=== PATIENT | female | born 1960 | race Caucasian/White ===

== ENCOUNTER 2016-08-05 17:05 | Emergency (ER) | payer BC ==
[2016-08-05] MEDS ORDERED: HYDROmorphone 0.5 MG/0.5 ML Syringe IVPUSH ONE ×2 (17:20→18:48)
[2016-08-05] MEDS ORDERED: Sodium Chloride 0.9% 500 ML IV ONE (17:20)
[2016-08-05] MEDS ORDERED: Ondansetron 4 MG/2 ML SDV IVPUSH ONE (17:20)
[2016-08-05] MEDS ORDERED: Sodium Chloride 0.9% 10 ML Syringe FLUSH PRN (17:20)
--- NOTE | 2016-08-05 17:49 | EDM.PDOC ---
ED HPI GENERAL MEDICAL PROBLEM - General Chief Complaint: Flank Pain Stated Complaint: POSS KIDNEY STONE Time Seen by Provider: 08/05/16 17:13 Source of Information: Reports: Patient, RN Notes Reviewed - History of Present Illness INITIAL COMMENTS - FREE TEXT/NARRATIVE: 55-year-old lady with onset of right back and flank discomfort about 45 minutes ago. She was out "fixing fence". No fall or injury. The pain started in the right back and then has been radiating to the right flank and even to the right groin. His been sharp and shooting with nausea and vomiting. She did have a fairly brief episode of discomfort right back yesterday which was relieved by pain Advil or ibuprofen. No voiding dysuria or frequency. No fever or chills. Right Flank Pain Score (Numeric/FACES): 8 - Related Data Allergies Allergy/AdvReac Type Severity Reaction Status Date / Time No Known Allergies Allergy Verified 08/15/14 06:59 Home Meds: Home Meds Travoprost [Travatan Z 0.004% Ophth Soln] 1 drop EYEBOTH DAILY 08/15/14 [History ] Past Medical History HEENT History: Reports: Glaucoma Gastrointestinal History: Reports: Other (See Below) Other Gastrointestinal History: stretched esphagus due to choking Genitourinary History: Reports: Renal Calculus, Other (See Below) Other Genitourinary History: mass to one of the kidneys Endocrine/Metabolic History: Reports: Other (See Below) Other Endocrine/Metabolic History: nodules on thyroid Social & Family History - Tobacco Use Smoking Status *Q: Never Smoker Second Hand Smoke Exposure: No - Caffeine Use Caffeine Use: Reports: Coffee - Alcohol Use Days Per Week of Alcohol Use: 1 Number of Drinks Per Day: 1 Total Drinks Per Week: 1 - Recreational Drug Use Recreational Drug Use: No Drug Use in Last 12 Months: No ED ROS GENERAL - Review of Systems Review Of Systems: See Below Constitutional: Denies: Fever, Chills HEENT: Reports: No Symptoms Respiratory: Reports: No Symptoms Cardiovascular: Denies: Chest Pain GI/Abdominal: Reports: Abdominal Pain, Nausea (Right flank pain), Vomiting. Denies: Diarrhea : Denies: Dysuria, Frequency Musculoskeletal: Reports: Back Pain Skin: Reports: No Symptoms (Right-sided) ED EXAM, RENAL/ - Physical Exam Exam: See Below General Appearance: Alert, Moderate Distress Eye Exam: Bilateral Eye: PERRL Throat/Mouth: Normal Inspection Head: Atraumatic. No: Facial Swelling Neck: Supple, Full Range of Motion Respiratory/Chest: No Respiratory Distress, Lungs Clear Cardiovascular: Regular Rate, Rhythm GI/Abdominal: Non-Tender. No: Guarding Back Exam: CVA Tenderness (R) (Mild). No: CVA Tenderness (L) Neurological: Alert, Oriented, No Motor/Sensory Deficits Skin Exam: Warm, Dry, Normal Color Course - Vital Signs Last Recorded V/S: Last Vital Signs Temp 96.7 F 08/05/16 17:11 Pulse 59 L 08/05/16 17:11 Resp 20 08/05/16 17:11 BP 138/83 08/05/16 17:11 Pulse Ox 98 08/05/16 17:11 - Orders/Labs/Meds Orders: Active Orders 24 hr Category Date Time Status Peripheral IV Care [RC] . DIRECTED Care 08/05/16 17:20 Active UA W/MICROSCOPIC [URIN] Stat Lab 08/05/16 17:19 Uncollected Sodium Chloride 0.9% [Saline Flush] Med 08/05/16 17:20 Active 10 ml FLUSH ASDIRECTED PRN Peripheral IV Insertion Adult [OM.PC] Stat Oth 08/05/16 17:20 Ordered Medication Orders Sodium Chloride (Saline Flush) 10 ml FLUSH ASDIRECTED PRN PRN Reason: Keep Vein Open Last Admin: 08/05/16 17:37 Dose: 10 ml Meds: Medications Generic Name Dose Route Start Last Admin Trade Name Freq PRN Reason Stop Dose Admin Sodium Chloride 10 ml 08/05/16 17:20 08/05/16 17:37 Saline Flush FLUSH 10 ml ASDIRECTED PRN Administration Keep Vein Open Discontinued Medications Generic Name Dose Route Start Last Admin Trade Name Freq PRN Reason Stop Dose Admin Hydromorphone HCl 0.5 mg 08/05/16 17:20 08/05/16 17:35 Dilaudid IVPUSH 08/05/16 17:21 0.5 mg ONETIME ONE Administration Hydromorphone HCl 0.5 mg 08/05/16 18:05 08/05/16 18:08 Dilaudid IVPUSH 08/05/16 18:06 0.5 mg ONETIME STA Administration Hydromorphone HCl Confirm 08/05/16 18:06 08/05/16 18:10 Dilaudid Administered 08/05/16 18:07 Not Given Dose 0.5 mg .ROUTE .STK-MED ONE Hydromorphone HCl 0.5 mg 08/05/16 18:48 Dilaudid IVPUSH 08/05/16 18:49 ONETIME ONE Sodium Chloride 500 mls @ 999 mls/hr 08/05/16 17:20 08/05/16 17:33 Normal Saline IV 08/05/16 17:50 999 mls/hr .BOLUS ONE Administration Ondansetron HCl 4 mg 08/05/16 17:20 08/05/16 17:34 Zofran IVPUSH 08/05/16 17:21 4 mg ONETIME ONE Administration - Re-Assessments/Exams Free Text/Narrative Re-Assessment/Exam: 08/05/16 18:57 Patient has a 6.6 mm stone right ureter with hydronephrosis, see Radiology report for details. Departure - Departure Time of Disposition: 18:58 Disposition: Home, Self-Care 01 Condition: Fair Clinical Impression: Kidney stone on right side - Discharge Information Forms: ED Department Discharge Additional Instructions: Strain urine to watch for stone, Tylenol for mild to moderate discomfort or Percocet as needed for severe pain, did not take Tylenol and Percocet at the same time, do not drive when taking Percocet, Zofran if needed for further nausea or vomiting. Call Dr. Molina's office Sunday morning, asked for help to get a urology referral for 6.6 mm stone ureter. - My Orders Last 24 Hours: My Active Orders 08/05/16 17:19 UA W/MICROSCOPIC [URIN] Stat 08/05/16 17:20 Peripheral IV Care [RC] . DIRECTED Sodium Chloride 0.9% [Saline Flush] 10 ml FLUSH ASDIRECTED PRN Peripheral IV Insertion Adult [OM.PC] Stat - Assessment/Plan Last 24 Hours: My Active Orders 08/05/16 17:19 UA W/MICROSCOPIC [URIN] Stat 08/05/16 17:20 Peripheral IV Care [RC] . DIRECTED Sodium Chloride 0.9% [Saline Flush] 10 ml FLUSH ASDIRECTED PRN Peripheral IV Insertion Adult [OM.PC] Stat
[2016-08-05] MEDS ORDERED: HYDROmorphone 0.5 MG/0.5 ML Syringe IVPUSH STA (18:05)
[2016-08-05] MEDS ORDERED: HYDROmorphone 0.5 MG/0.5 ML Syringe ONE (18:06)
--- NOTE | 2016-08-05 18:14 | CT ---
CT abdomen and pelvis Technique: Multiple axial sections were obtained from above the dome of the diaphragm inferiorly through the pubic symphysis. Intravenous and oral contrast was not utilized. Study has been performed as a ureteral stone protocol. Findings: Proximal ureter is mildly dilated. This is due to an obstructing stone within the right ureter measuring approximately 6.6 mm. Stone is located at the L4-L5 level. No other abnormal calcifications are seen along the course of the ureters. No abnormal calcifications are seen within the kidneys. Fatty containing lesion is identified within the left kidney. This lesion measures about 2.7 cm and is most likely due to angiomyolipoma. Visualized lung bases shows a small subpleural calcification on the right side believed to represent minimal granuloma. Moderately large hiatal hernia is seen. Noncontrast appearance of the liver and spleen appears within normal limits. Adrenal glands show no nodule. Several large calcified gallstones seen within the gallbladder. Pancreas appears within normal limits. Aorta shows no aneurysmal dilatation. No retroperitoneal adenopathy or mesenteric abnormalities are seen. No pelvic mass or adenopathy is seen. No free fluid is seen. No bowel dilatation is identified. Bone window settings were reviewed which shows mild scoliosis within the spine. Very mild degenerative change is scattered within the spine. Impression: 1. Mild proximal hydronephrosis due to an obstructing stone within the proximal to mid right ureter. Stone measures approximately 6.6 mm in size and located at the L4-L5 level. 2. 2.2 cm fatty lesion within the left kidney felt compatible with angiomyolipoma. 3. Other incidental findings as described above. Diagnostic code #3
[2016-08-05 19:28] VITALS: BP 134/84
== END 2016-08-05 19:30 | disposition home or self-care (01) ==
LOC: JD.ED 17:05
DX: N13.2 Hydronephrosis with renal and ureteral calculous obstruction (principal); Z79.899 Other long term (current) drug therapy
CPT/HCPCS: 74176; 96361; 96374; 96375; 96376; 99284; J1170; J2405; J7040; J7050; 99283

== ENCOUNTER 2016-08-06 00:44 | Emergency (ER) | payer BC ==
[2016-08-06 00:54] VITALS: BP 130/84
[2016-08-06] MEDS ORDERED: Metoclopramide 10 MG/2 ML SDV IVPUSH ONE (01:07)
[2016-08-06] MEDS ORDERED: HYDROmorphone 0.5 MG/0.5 ML Syringe IVPUSH ONE (01:07)
--- NOTE | 2016-08-06 01:11 | EDM.PDOC ---
ED HPI GENERAL MEDICAL PROBLEM - General Chief Complaint: Flank Pain Stated Complaint: KIDNEY STONE/VOMITING Time Seen by Provider: 08/06/16 01:06 Source of Information: Reports: Patient History Limitations: Reports: No Limitations - History of Present Illness INITIAL COMMENTS - FREE TEXT/NARRATIVE: 55-year-old female presents to the ED due to intractable nausea and vomiting secondary to severe pain. Pain started in her right flank last evening. She was seen through the ED and identified to have a 6.6-7 mm stone in the proximal right ureter. She was discharged on Zofran which she has not taken. She states the pain has not really moved much still mostly in her right flank rates the pain as 10 out of 10 and is causing her to be nausea and vomiting on multiple occasions. No position is comfortable. She reports one previous bout of kidney stones years ago. Onset: Sudden Onset Date: 08/05/16 Duration: Hour(s):, Getting Worse, Waxing/Waning Location: Reports: Back (Right flank is okay so radiating pain down towards the right groin.) Quality: Reports: Ache, Pressure, Stabbing Severity: Severe Improves with: Reports: None (10 out of 10 pain at times.) Worsens with: Reports: None Context: Denies: Activity, Exercise, Lifting, Sick Contact, Trauma, Other Associated Symptoms: Reports: Loss of Appetite, Nausea/Vomiting. Denies: Malaise, Seizure, Shortness of Breath (Intractable nausea and vomiting), Syncope Treatments HR SPECIALIST: Reports: Other (see below) Right Flank Pain Score (Numeric/FACES): 9 - Related Data Allergies Allergy/AdvReac Type Severity Reaction Status Date / Time No Known Allergies Allergy Verified 08/06/16 00:54 Home Meds: Home Meds Travoprost [Travatan Z 0.004% Ophth Soln] 1 drop EYEBOTH DAILY 08/15/14 [History ] Past Medical History HEENT History: Reports: Glaucoma Gastrointestinal History: Reports: Other (See Below) Other Gastrointestinal History: stretched esphagus due to choking Genitourinary History: Reports: Renal Calculus, Other (See Below) Other Genitourinary History: mass to one of the kidneys Endocrine/Metabolic History: Reports: Multinodular Thyroid Other Endocrine/Metabolic History: nodules on thyroid Social & Family History - Tobacco Use Smoking Status *Q: Never Smoker Second Hand Smoke Exposure: No - Caffeine Use Caffeine Use: Reports: None - Alcohol Use Days Per Week of Alcohol Use: 1 Number of Drinks Per Day: 1 Total Drinks Per Week: 1 - Recreational Drug Use Recreational Drug Use: No Drug Use in Last 12 Months: No - Living Situation & Occupation Living situation: Reports: Occupation: Employed ED ROS GENERAL - Review of Systems Review Of Systems: See Below Constitutional: Reports: Chills, Malaise, Weakness, Fatigue, Decreased Appetite. Denies: Fever HEENT: Reports: No Symptoms Respiratory: Reports: No Symptoms Cardiovascular: Reports: No Symptoms Endocrine: Reports: No Symptoms GI/Abdominal: Reports: Abdominal Pain (Primary pain is right flank but occasional pain radiates around into the right groin and right hemiabdomen.), Nausea, Vomiting. Denies: Diarrhea : Reports: Flank Pain, Pain. Denies: Frequency (Severe right side), Hematuria , Incontinence, Irregular Menses, Urgency, Urinary Retention Musculoskeletal: Reports: No Symptoms Skin: Reports: No Symptoms Neurological: Reports: No Symptoms Psychiatric: Reports: No Symptoms Hematologic/Lymphatic: Reports: No Symptoms Immunologic: Reports: No Symptoms ED EXAM, RENAL/ - Physical Exam Exam: See Below Exam Limited By: No Limitations General Appearance: Alert, WD/WN, Moderate Distress Eye Exam: Bilateral Eye: Normal Inspection Throat/Mouth: Normal Inspection, Normal Lips, Normal Teeth, Normal Oropharynx Head: Atraumatic, Normocephalic Neck: Normal Inspection, Supple, Non-Tender, Full Range of Motion. No: Carotid Bruit, Lymphadenopathy (L), Lymphadenopathy (R) Respiratory/Chest: No Respiratory Distress, Lungs Clear, Normal Breath Sounds, No Accessory Muscle Use Cardiovascular: Normal Peripheral Pulses, Regular Rate, Rhythm, No Edema, No Murmur GI/Abdominal: Soft, Non-Tender, No Organomegaly, No Distention, Abnormal Bowel Sounds (Hypoactive bowel sounds.) Back Exam: CVA Tenderness (R) (Mild.) Extremities: Normal Inspection, Normal Range of Motion, Non-Tender, No Pedal Edema, Normal Capillary Refill Neurological: Alert, Oriented, CN II-XII Intact, Normal Cognition, Normal Gait, Normal Reflexes Psychiatric: Normal Affect, Normal Mood Skin Exam: Warm, Dry, Intact, Normal Color, No Rash Course - Vital Signs Last Recorded V/S: Last Vital Signs Temp 36.4 C 08/06/16 00:51 Pulse 70 08/06/16 00:51 Resp 16 08/06/16 00:51 BP 130/84 08/06/16 00:51 Pulse Ox 96 08/06/16 00:51 - Orders/Labs/Meds Meds: Medications Discontinued Medications Generic Name Dose Route Start Last Admin Trade Name Jordon PRN Reason Stop Dose Admin Hydromorphone HCl 0.5 mg 08/06/16 01:07 08/06/16 01:17 Dilaudid IVPUSH 08/06/16 01:08 0.5 mg ONETIME ONE Administration Dextrose/Sodium Chloride 1,000 mls @ 150 mls/hr 08/06/16 01:15 08/06/16 01:15 Dextrose 5%-Normal Saline IV 150 mls/hr ASDIRECTED HARIKA Administration Ketorolac Tromethamine 30 mg 08/06/16 01:15 08/06/16 01:16 Toradol IVPUSH 30 mg ONETIME HARIKA Administration Metoclopramide HCl 7.5 mg 08/06/16 01:07 08/06/16 01:15 Reglan IVPUSH 08/06/16 01:08 7.5 mg ONETIME ONE Administration - Radiology Interpretation Free Text/Narrative:: 55-year-old female with confirmed proximal right-sided kidney stone attends the ED due to intractable nausea and vomiting and persistent pain. She was discharged to my knowledge on Percocet tablets and Zofran which she has not taken she can keep them down. She did try the Zofran recently. Plan IV D5 normal saline at 150 mils per hour. Given Dilaudid 0.5 mg IV with Toradol 30 g IV and Reglan 7.5 mg IV for pain and nausea relief. I will review the CT scan. - Re-Assessments/Exams Free Text/Narrative Re-Assessment/Exam: 08/06/16 01:34 I did review the CT scan of her abdomen and pelvis was completed earlier yesterday. He does confirm several large gallstones. She did have a 6.6- 7 mm stone in the proximal right ureter with moderate hydronephrosis and obstruction. No other stones were identified in either of the other renal parenchyma. No other pathology identified on CT exam. 08/06/16 02:07 patient currently is pain-free and feeling much better. She will therefore be discharged home. She will use the Zofran every 4 hours sublingually and Percocet 2 tablets as needed for pain relief. The stone measures between 6.6 and 7 mm in size and is likely going to require lithotripsy to remove it. She will therefore make arrangements to see urology as soon as possible. Departure - Departure Time of Disposition: 02:09 Disposition: Home, Self-Care 01 Condition: Fair Clinical Impression: Ureteric colic, Kidney stone on right side - Discharge Information Instructions: Kidney Stones, [id number] Referrals: Lina Gonzalez MD [Primary Care Provider] - Forms: ED Department Discharge Additional Instructions: Reevaluation in the emergency room this morning due to intractable nausea and vomiting due to pain from an impacted kidney stone in the right proximal ureter. Current stone is between 6.6 and 7 mm in the upper right ureter. You're treated with IV fluids and then pain management in the ED with Dilaudid 0.5 Toradol 30 mg and Reglan 7.5 mg IV. This has relieved her pain at least temporarily. At home I would suggest using Zofran every 4 hours under the tongue to prevent any further nausea and vomiting and then 2 Percocet tablets every 4-6 hours as needed for relief of pain. Stone is likely impacted and likely going to need lithotripsy to remove it. The pain changes position and travels into the lower abdomen or down into the groin there is a good chance she may pass the stone on her own over the next 48 hours. Return to medical care pain is not controlled her vomiting persists.
[2016-08-06] MEDS ORDERED: Dextrose 5%-0.9% NaCl 1,000 ML IV SCH (01:15)
[2016-08-06] MEDS ORDERED: Ketorolac 30 MG/ML SDV IVPUSH SCH (01:15)
== END 2016-08-06 02:20 | disposition home or self-care (01) ==
LOC: JD.ED 00:44
DX: N13.2 Hydronephrosis with renal and ureteral calculous obstruction (principal); Z87.442 Personal history of urinary calculi
CPT/HCPCS: 96361; 96374; 96375; 99284; J1170; J1885; J2765; J7042; 99283

== ENCOUNTER 2017-05-16 20:16 | Emergency (ER) | payer BC ==
[2017-05-16 20:30] VITALS: BP 161/86
--- NOTE | 2017-05-16 20:58 | EDM.PDOC ---
ED HPI GENERAL MEDICAL PROBLEM - General Chief Complaint: Genitourinary Problem Stated Complaint: POSSIBLE BLADDER INFECTION Time Seen by Provider: 05/16/17 20:35 Source of Information: Reports: Patient History Limitations: Reports: No Limitations - History of Present Illness INITIAL COMMENTS - FREE TEXT/NARRATIVE: 56-year-old female presents for evaluation and treatment of dysuria and hematuria. Reports her symptoms have been present for the last couple of days. States her symptoms are worsening. She has attempted to reduce her symptoms by increasing her fluids but continues to have symptoms. Currently complaining of dysuria and hematuria. No fevers, chills, nausea, vomiting, back pain or abdominal pain. Primary care providers Dr. Alonzo. Patient reports about one year ago she was seen in the ER and was found to have a kidney stone. She subsequently had to have a lithotripsy done. States she had a bladder infection about 3 months ago. Vaginal Pain Score (Numeric/FACES): 3 - Related Data Allergies Allergy/AdvReac Type Severity Reaction Status Date / Time No Known Allergies Allergy Verified 05/16/17 21:07 Home Meds: Home Meds Travoprost [Travatan Z 0.004% Ophth Soln] 1 drop EYEBOTH DAILY 08/15/14 [History ] Nitrofurantoin Monohyd/M-Cryst [Macrobid 100 mg Capsule] 100 mg PO BID #13 capsule 05/16/17 [Rx] Past Medical History HEENT History: Reports: Glaucoma Gastrointestinal History: Reports: Other (See Below) Other Gastrointestinal History: stretched esphagus due to choking Genitourinary History: Reports: Renal Calculus, Other (See Below) Other Genitourinary History: mass to one of the kidneys Endocrine/Metabolic History: Reports: Multinodular Thyroid Other Endocrine/Metabolic History: nodules on thyroid Social & Family History - Family History Family Medical History: Noncontributory - Tobacco Use Smoking Status *Q: Never Smoker Second Hand Smoke Exposure: No - Caffeine Use Caffeine Use: Reports: Coffee - Alcohol Use Days Per Week of Alcohol Use: 1 Number of Drinks Per Day: 1 Total Drinks Per Week: 1 - Recreational Drug Use Recreational Drug Use: No Drug Use in Last 12 Months: No - Living Situation & Occupation Living situation: Reports: Occupation: Employed ED ROS GENERAL - Review of Systems Review Of Systems: See Below Constitutional: Denies: Fever, Chills GI/Abdominal: Denies: Abdominal Pain, Nausea, Vomiting : Reports: Dysuria, Hematuria Musculoskeletal: Denies: Back Pain ED EXAM, RENAL/ - Physical Exam Exam: See Below Exam Limited By: No Limitations General Appearance: Alert, WD/WN, No Apparent Distress Throat/Mouth: Normal Inspection, Normal Voice, No Airway Compromise Neck: Normal Inspection Respiratory/Chest: No Respiratory Distress, Lungs Clear, Normal Breath Sounds Cardiovascular: Normal Peripheral Pulses, Regular Rate, Rhythm, No Murmur Back Exam: No: CVA Tenderness (L), CVA Tenderness (R) Neurological: Alert, Oriented, Normal Cognition Psychiatric: Normal Affect, Normal Mood Skin Exam: Warm, Dry, Normal Color Course - Vital Signs Last Recorded V/S: Last Vital Signs Temp 36.2 C 05/16/17 20:27 Pulse 62 05/16/17 20:27 Resp 18 05/16/17 20:27 BP 161/86 H 05/16/17 20:27 Pulse Ox 99 05/16/17 20:27 - Orders/Labs/Meds Orders: Active Orders 24 hr Category Date Time Status CULTURE URINE [RM] Stat Lab 05/16/17 20:45 Ordered UA W/MICROSCOPIC [URIN] Stat Lab 05/16/17 20:27 Ordered Labs: Laboratory Tests 05/16/17 Range/Units 20:27 Urine Color Red H (Yellow) Urine Appearance Turbid H (Clear) Urine pH 7.0 (5.0-8.0) Ur Specific [place] 1.025 (1.005-1.030) Urine Protein 2+ H (Negative) Urine Glucose (UA) Negative (Negative) Urine Ketones Trace H (Negative) Urine Occult Blood 3+ H (Negative) Urine Nitrite Positive H (Negative) Urine Bilirubin 1+ H (Negative) Urine Urobilinogen 1.0 (0.2-1.0) Ur Leukocyte Esterase 3+ H (Negative) Urine RBC >100 H (0-5) /hpf Urine WBC 10-20 H (0-5) /hpf Ur Epithelial Cells 0-5 (0-5) /hpf Urine Bacteria Many H (FEW) /hpf Urine Mucus Not seen (FEW) /hpf Meds: Medications Discontinued Medications Generic Name Dose Route Start Last Admin Trade Name Freq PRN Reason Stop Dose Admin Nitrofurantoin Macrocrystals 100 mg 05/16/17 21:03 05/16/17 21:08 Macrobid PO 05/16/17 21:04 100 mg ONETIME ONE Administration - Re-Assessments/Exams Free Text/Narrative Re-Assessment/Exam: 05/16/17 21:00 I reviewed the UA results with the patient. Urine has been sent for culture. I will give her a dose of Macrobid here in the ER and give her prescription that she may fill tomorrow morning. Offered instymeds but she declined. Discharge instructions as documented. Departure - Departure Time of Disposition: 21:03 Disposition: Home, Self-Care 01 Condition: Good Clinical Impression: UTI, Urinary tract infectious disease - Discharge Information Prescriptions: Nitrofurantoin Monohyd/M-Cryst [Macrobid 100 mg Capsule] 100 mg PO BID #13 capsule Instructions: Urinary Tract Infection, Adult, [id number] Referrals: Lina Gonzalez MD [Primary Care Provider] - Forms: ED Department Discharge Additional Instructions: Macrobid 1 tab twice a day for 7 days. First dose given in the ER. Start your prescription tomorrow. Make sure drinking plenty of fluids. make Sure you wiping front to back and urinating whenever you have the urge. Also make sure you urinate after intercourse to prevent urinary tract infections. [id number] Azo as needed for dysuria relief. Follow up with your primary care provider as needed or if you continue to have frequent urinary tract infections. Please return to the ER if your symptoms change or worsen. - My Orders Last 24 Hours: My Active Orders 05/16/17 20:27 UA W/MICROSCOPIC [URIN] Stat 05/16/17 20:45 CULTURE URINE [RM] Stat - Assessment/Plan Last 24 Hours: My Active Orders 05/16/17 20:27 UA W/MICROSCOPIC [URIN] Stat 05/16/17 20:45 CULTURE URINE [RM] Stat
[2017-05-16] MEDS ORDERED: Nitrofurantoin Monohydrate/Macrocrystalline 100 MG Cap PO ONE (21:03)
== END 2017-05-16 21:11 | disposition home or self-care (01) ==
LOC: JD.ED 20:16
DX: N39.0 Urinary tract infection, site not specified (principal); Z79.899 Other long term (current) drug therapy
CPT/HCPCS: 81001; 87086; 87088; 87186; 99283; A9270

== ENCOUNTER 2020-06-24 11:27 | Emergency (ER) | payer BC ==
[2020-06-24 11:49] VITALS: BP 146/83; PULSE 57
[2020-06-24] MEDS ORDERED: Barium Sulfate 60% w/v Susp 355 ML Bottle PO ONE (12:23)
--- NOTE | 2020-06-24 13:08 | CR ---
Esophagram: AP and lateral views of the esophagus were obtained. Small defects are seen within the upper cervical esophagus most likely representing air bubbles. No definite acute occluding abnormality is appreciated. Impression: 1. Probable ingested air bubbles. No acute occluding abnormality is seen. 2. If patient continues to have symptoms, consider endoscopy to further evaluate. Diagnostic code #2
--- NOTE | 2020-06-24 13:42 | EDM.PDOC ---
ED HPI GENERAL MEDICAL PROBLEM - General Chief Complaint: ENT Problem Stated Complaint: SEED STUCK IN THROAT Time Seen by Provider: 06/24/20 11:54 Source of Information: Reports: Patient, RN Notes Reviewed - History of Present Illness INITIAL COMMENTS - FREE TEXT/NARRATIVE: Pt has foreign body sensation in her post throat, upper neck. States she was eating sunflower seeds last evening. Feels like she swallowed a whole seed and feels like it is stuck post throat, upper neck. Has had not trouble swallowing saliva or drinking fluids. Has tried eating some soft foods to push it down but still feels about the same. No nausea or vomiting. It is not painful to swallow. - Related Data Allergies Allergy/AdvReac Type Severity Reaction Status Date / Time No Known Allergies Allergy Verified 06/24/20 11:49 Home Meds: Home Meds Travoprost [Travatan Z 0.004% Ophth Soln] 1 drop EYEBOTH DAILY 08/15/14 [History] Past Medical History HEENT History: Reports: Glaucoma Gastrointestinal History: Reports: Other (See Below) Other Gastrointestinal History: stretched esphagus due to choking Genitourinary History: Reports: Renal Calculus, Other (See Below) Other Genitourinary History: mass to one of the kidneys Endocrine/Metabolic History: Reports: Multinodular Thyroid Other Endocrine/Metabolic History: nodules on thyroid Social & Family History - Family History Family Medical History: No Pertinent Family History - Tobacco Use Tobacco Use Status *Q: Never Tobacco User Second Hand Smoke Exposure: No - Caffeine Use Caffeine Use: Reports: Coffee - Recreational Drug Use Recreational Drug Use: No - Living Situation & Occupation Living situation: Reports: Occupation: Employed ED ROS GENERAL - Review of Systems Review Of Systems: See Below Constitutional: Denies: Fever, Chills, Other HEENT: Reports: Throat Pain. Denies: Throat Swelling Respiratory: Denies: Shortness of Breath, Cough Cardiovascular: Denies: Chest Pain GI/Abdominal: Denies: Abdominal Pain, Nausea, Vomiting Musculoskeletal: Denies: Neck Pain, Joint Pain Skin: Denies: Rash Neurological: Denies: Dizziness, Headache ED EXAM, GI/ABD - Physical Exam Exam: See Below General Appearance: Alert, No Apparent Distress Throat/Mouth: Normal Inspection, Normal Oropharynx Head: Atraumatic. No: Facial Swelling Neck: Supple. No: Lymphadenopathy (L), Lymphadenopathy (R) Respiratory/Chest: No Respiratory Distress, Lungs Clear, Normal Breath Sounds. No: Rhonchi, Wheezing Cardiovascular: Regular Rate, Rhythm Extremities: Normal Inspection, Normal Range of Motion Neurological: Alert, Oriented, No Motor/Sensory Deficits Skin Exam: Warm, Dry, Normal Color Course - Vital Signs Last Recorded V/S: Last Vital Signs Temp 97.0 F 06/24/20 11:46 Pulse 57 L 06/24/20 11:46 Resp 16 06/24/20 11:46 BP 146/83 H 06/24/20 11:46 Pulse Ox 99 06/24/20 11:46 - Orders/Labs/Meds Meds: Medications Discontinued Medications Generic Name Dose Route Start Last Admin Trade Name Freq PRN Reason Stop Dose Admin Barium Sulfate 355 ml 06/24/20 12:23 06/24/20 12:32 Barium Sulfate 60% W/V Susp 355 Ml Bottle PO 06/24/20 12:24 355 ml PREPRO ONE Administration - Re-Assessments/Exams Free Text/Narrative Re-Assessment/Exam: 06/26/20 18:41 No difficulty swallowing water. Did an esophogram with did not show any solid evidence for FB. See Radiology report for details. Discussed with patient that there is strong liklihood that her sx are due to abrasion, irritation from the FB and their is expectation that her sx will resolve over the next 24 to 48 hrs. If they do not than she will need endoscopy. She is comfortable with that plan. Departure - Departure Time of Disposition: 13:31 Disposition: Home, Self-Care 01 Condition: Fair Clinical Impression: Abrasion of esophagus Qualifiers: Encounter type: initial encounter Qualified Code(s): S27.818A - Other injury of esophagus (thoracic part), initial encounter - Discharge Information Referrals: Lina Gonzalez MD [Primary Care Provider] - Forms: ED Department Discharge Additional Instructions: The discomfort you have should resolve over the next 24 to 48 hours. Tylenol or ibuprofen if needed. Follow up with Dr Doty or one of the other clinic providers Sunday for recheck. Call today for appointment. Return to ED if symptoms worsening in any way. Sepsis Event Note (ED) - Evaluation Sepsis Screening Result: No Definite Risk
== END 2020-06-24 14:33 | disposition home or self-care (01) ==
LOC: JD.ED 11:27
DX: S27.818A Other injury of esophagus (thoracic part), initial encounter (principal); W22.8XXA Striking against or struck by other objects, initial encounter
CPT/HCPCS: 74220; 74220-26; 99283; 99283-25